=== PATIENT | male | born 1970 | race Caucasian/White ===

== ENCOUNTER 2019-08-04 14:17 | Emergency (ER) | payer MEDICAID ==
[~2019-08-04] VITALS: Ht 180.3 cm; Wt 83.9 kg
[~2019-08-04 14:17] MED LIST: CLON1TAB PO; FLUO10CA13 PO
[2019-08-04 14:32] VITALS: BP 121/68
--- NOTE | 2019-08-04 14:37 | NUR ---
PT HERE WITH C/O SUBJECTIVE FEVER AND COUGH X 1 DAY.
[2019-08-04] MEDS ORDERED: ACETAMINOPHEN 500 MG TABLET PO ONE (15:00)
[2019-08-04] MEDS ORDERED: ACETAMINOPHEN 500 MG TABLET ONE (15:13)
[2019-08-04 15:28] LABS: RAPID INFLUENZA A Negative (Negative); RAPID INFLUENZA B Negative (Negative)
--- NOTE | 2019-08-04 16:05 | NUR ---
Patient/Caregiver given discharge instructions and they have confirmed that they understand the instructions. Patient ambulatory with steady gait.
== END 2019-08-04 16:08 | disposition home or self-care (01) ==
LOC: ED 15:00
DX: J06.9 Acute upper respiratory infection, unspecified (principal); J45.909 Unspecified asthma, uncomplicated; Z90.89 Acquired absence of other organs; M79.10 Myalgia, unspecified site
CPT/HCPCS: 71046; 87081; 87400; 87880; 99284

== ENCOUNTER 2019-08-25 15:31 | Emergency (ER) | payer MEDICAID ==
[~2019-08-25] VITALS: Ht 175.3 cm; Wt 87.0 kg
[2019-08-25 15:39] VITALS: BP 125/76
== END 2019-08-25 18:10 | disposition home or self-care (01) ==
LOC: ED 15:55
DX: J00 Acute nasopharyngitis [common cold] (principal); J20.8 Acute bronchitis due to other specified organisms; B97.89 Other viral agents as the cause of diseases classified elsewhere; J01.90 Acute sinusitis, unspecified
CPT/HCPCS: 99283

== ENCOUNTER 2021-01-03 01:27 | Emergency (ER) | payer MEDICAID ==
[~2021-01-03] VITALS: Ht 180.3 cm; Wt 94.9 kg
[2021-01-03 01:31] VITALS: BP 102/66
--- NOTE | 2021-01-03 02:05 | NUR ---
PT LEFT AMA.
== END 2021-01-03 02:06 | disposition left against medical advice (07) ==
LOC: ED 02:00
DX: Z53.21 Procedure and treatment not carried out due to patient leaving prior to being seen by health care provider (principal)